=== PATIENT | male | born 1980 | race Caucasian/White ===

== ENCOUNTER → 2017-05-03 | Outpatient (CLI) | payer BC ==
--- NOTE | 2017-05-03 22:08 | EST ---
EXERCISE STRESS AGE: 37 SEX: Male. HT: 5'9" WT: 225 PROTOCOL: Anuj. STAGE: III DURATION OF EXERCISE: 9:00 HEART RATE REST: 82 BLOOD PRESSURE REST: 131/97 MAXIMUM HEART RATE ACHIEVED: 167 MAXIMUM BLOOD PRESSURE: 174/64 85% MPHR: 155 100% MPHR: 182 METS: INDICATIONS: Chest pain. CLINICAL INFORMATION: Baseline EKG revealed a normal sinus rhythm without significant ST-T changes. There were nondiagnostic inferior Q-waves noted. Patient walked for 9 minutes on a standard Anuj protocol, achieved a maximal heart rate of 167 beats per minute, which is more than 85% of predicted maximal. He developed fatigue and shortness of breath but did not have any angina or arrhythmia. EKG did not reveal any ST-segment changes to indicate ischemia. Rare isolated PVCs were noted. FINAL IMPRESSION: 1. By EKG criteria, this is a negative stress test with fair exercise capacity of 9 minutes. 2. There was no angina or arrhythmia, and this is a negative stress test for ischemia. MMBILLYL / IJN: [id number] /
== END | disposition home or self-care (01) ==
LOC: RADNMMAIN 11:08
PROVIDERS: ATTEND Family Medicine
DX: R07.89 Other chest pain (principal)
CPT/HCPCS: 93017